=== PATIENT | female | born 1935 | race Caucasian/White ===

== ENCOUNTER 2018-07-31 15:30 | Emergency (ER) | payer MEDICARE ==
[~2018-07-31] VITALS: Ht 154.9 cm; Wt 61.2 kg
[2018-07-31 15:35] VITALS: BP 150/66
[2018-07-31] MEDS ORDERED: DEXILANT60 MG ORAL (15:41)
[2018-07-31] MEDS ORDERED: SINEMET 25-1001 EAC1 ORAL (15:44)
[2018-07-31] MEDS ORDERED: RANITIDINE HCL150 MG ORAL (15:44)
[2018-07-31] MEDS ORDERED: RITALIN20 MG ORAL (15:44)
[2018-07-31] MEDS ORDERED: SYNTHROID112 MCG ORAL (15:44)
[2018-07-31] MEDS ORDERED: SUBOXONE 2 MG-1 EACH SL (15:44)
[2018-07-31] MEDS ORDERED: CYMBALTA60 MG ORAL (15:44)
[2018-07-31] MEDS ORDERED: CEPHALEXIN500 MG ORAL (15:44)
[2018-07-31] MEDS ORDERED: ATORVASTATIN CA10 MG ORAL (15:44)
[2018-07-31] MEDS ORDERED: NAMENDA10 MG ORAL (15:44)
--- NOTE | 2018-07-31 16:02 | Emergency Room Report ---
History of Present Illness General Chief Complaint: Chest Pain Source: Patient Present Illness HPI Mrs. Neri is an 82-year-old female with history of Parkinson's disease, pericarditis and UTI who presents with 2 weeks of generalized weakness and altered mental status. She's had difficulty with energy. Appears to have repetitive speech and hallucinations. She was evaluated by her neurologist today. While at the neurologist office today, she developed sudden onset 7/10 chest pain. Improved with aspirin and nitroglycerin. 2 years ago she had similar chest pain diagnosed with pericarditis. No history of AL. Patient denies any pain at this time. Allergies: Coded Allergies: NITROFURANTOIN (Verified Allergy, Unknown, 07/31/18) Uncoded Allergies: SULFA (Allergy, Unknown, 07/31/18) Patient History Past Medical History: see triage record Past Surgical History: unable to obtain Social History: Denies: smoking, alcohol use, drug use Social History Narrative lives with , both patient and require 24 hour nursing care Now: No Reviewed Nursing Documentation: PMH: Agreed; PSxH: Agreed Nursing Documentation-PMH Past Medical History: No History, Except For Hx Asthma: Yes Hx Cancer: Yes - Breast Review of Systems All Other Systems: limited - ams Physical Exam Vital Signs Date Time Temp Pulse Resp B/P (MAP) Pulse Ox O2 Delivery O2 Flow Rate FiO2 07/31/18 15:33 98.8 68 20 141/84 95 Room Air Sp02 EP Interpretation: reviewed, normal General Appearance: no apparent distress, alert, non-toxic, other - elderly frail Head: normocephalic, atraumatic Eyes: bilateral eye normal inspection ENT: hearing grossly normal, normal pharynx, no angioedema, normal voice Neck: full range of motion, supple/symm/no masses Respiratory: chest non-tender, lungs clear, normal breath sounds, no rhonchi, no respiratory distress, no retraction, speaking full sentences Cardiovascular #1: regular rate, rhythm, no edema, no gallop, no JVD, no murmur , no rub Gastrointestinal: normal bowel sounds, non tender, soft, non-distended, no guarding, no rebound Rectal: deferred Musculoskeletal: back normal, gait/station normal, normal range of motion, non- tender, calf tenderness Neurologic: alert, oriented x3, responsive, motor strength/tone normal, sensory intact, speech normal Psychiatric: judgement/insight normal, memory normal, no suicidal/homicidal ideation, depressed affect Skin: normal color, no rash, warm/dry, well hydrated Medical Decision Making Diagnostic Impression: Primary Impression: Chest pain Additional Impressions: Delirium Generalized weakness ER Course Mrs. Neri presents with 3 weeks of generalized weakness and delirium including confusion and hallucinations. Developed chest pain today without evidence of STEMI, Transferred to [facility] in stable condition for continuity of care and further evaluation. Dr. Castle is the accepting physician. Labs Test 07/31/18 16:10 White Blood Count 6.3 K/UL (4.8-10.8) Red Blood Count 4.43 M/UL (4.20-5.40) Hemoglobin 13.8 G/DL (12.0-16.0) Hematocrit 40.3 % (37.0-47.0) Mean Corpuscular Volume 91 FL (80-99) Mean Corpuscular Hemoglobin 31.2 PG (27.0-31.0) Mean Corpuscular Hemoglobin Concent 34.3 G/DL (32.0-36.0) Red Cell Distribution Width 11.3 % (11.6-14.8) Platelet Count 279 K/UL (150-450) Mean Platelet Volume 5.9 FL (6.5-10.1) Neutrophils (%) (Auto) 73.5 % (45.0-75.0) Lymphocytes (%) (Auto) 15.1 % (20.0-45.0) Monocytes (%) (Auto) 7.7 % (1.0-10.0) Eosinophils (%) (Auto) 0.7 % (0.0-3.0) Basophils (%) (Auto) 3.0 % (0.0-2.0) Sodium Level 135 MMOL/L (136-145) Potassium Level 4.6 MMOL/L (3.5-5.1) Chloride Level 98 MMOL/L (98-107) Carbon Dioxide Level 30 MMOL/L (21-32) Anion Gap 7 mmol/L (5-15) Blood Urea Nitrogen 19 mg/dL (7-18) Creatinine 1.0 MG/DL (0.55-1.30) Estimat Glomerular Filtration Rate mL/min (>60) Glucose Level 128 MG/DL (74-106) Calcium Level 9.5 MG/DL (8.5-10.1) Total Bilirubin 0.4 MG/DL (0.2-1.0) Aspartate Amino Transf (AST/SGOT) 25 U/L (15-37) Alanine Aminotransferase (ALT/SGPT) 6 U/L (12-78) Alkaline Phosphatase 103 U/L (46-116) Creatine Kinase MB 0.7 NG/ML (0.0-3.6) Troponin I 0.000 ng/mL (0.000-0.056) Total Protein 7.7 G/DL (6.4-8.2) Albumin 2.9 G/DL (3.4-5.0) Globulin 4.8 g/dL Albumin/Globulin Ratio 0.6 (1.0-2.7) Lab Results Impression labs within normal limits, normal troponin EKG Diagnostic Results EKG Time: 15:50 Rate: normal Rhythm: NSR Other Impression rate 75 bpm normal axis no ST elevation no overt signs of ischemia, artifact in leads I and III Last Vital Signs Date Time Temp Pulse Resp B/P (MAP) Pulse Ox O2 Delivery O2 Flow Rate FiO2 07/31/18 15:33 98.8 68 20 141/84 95 Room Air Kierra Valdes MD Jul 31, 2018 16:02
[2018-07-31 16:30] LABS: EOSINOPHILS % (AUTO) 0.7 % (0.0-3.0); HEMATOCRIT 40.3 % (37.0-47.0); HEMOGLOBIN 13.8 G/DL (12.0-16.0); LYMPHOCYTES % (AUTO) 15.1 % (20.0-45.0); MEAN CORPUSCULAR VOLUME 91 FL (80-99); MONOCYTES % (AUTO) 7.7 % (1.0-10.0); NEUTROPHILS % (AUTO) 73.5 % (45.0-75.0); PLATELET COUNT 279 K/UL (150-450); RED BLOOD COUNT 4.43 M/UL (4.20-5.40); RED CELL DISTRIBUTION WIDTH 11.3 % (11.6-14.8); WHITE BLOOD COUNT 6.3 K/UL (4.8-10.8)
--- NOTE | 2018-07-31 16:36 | Diagnostic Imaging Report ---
Indication: Dyspnea Comparison: None A single view chest radiograph was obtained. Findings: Cardiomediastinal appearance is within normal limits for age. The lungs are clear. Pulmonary vascularity is appropriate. The diaphragmatic contour is smooth and costophrenic angles are sharp. No pleural effusions are identified. There are surgical clips in the right axilla. The bones are osteopenic. Impression: No acute findings
[2018-07-31] MEDS ORDERED: Levodopa/Carbidopa 25/100 tab ORAL ONE (16:45)
[2018-07-31 16:50] LABS: ANION GAP 7 mmol/L (5-15); BLOOD UREA NITROGEN 19 mg/dL (7-18); CALCIUM 9.5 MG/DL (8.5-10.1); CARBON DIOXIDE 30 MMOL/L (21-32); CHLORIDE 98 MMOL/L (98-107); POTASSIUM 4.6 MMOL/L (3.5-5.1); SODIUM 135 MMOL/L (136-145)
[2018-07-31] MEDS ORDERED: SINEMET 25-2501 EACH ORAL (16:56)
[2018-07-31] MEDS ORDERED: Levodopa/Carbidopa 25/250 tab ORAL ONE (17:00)
[2018-07-31 17:04] LABS: ALANINE AMINOTRANSFERASE 6 U/L (12-78); ALBUMIN 2.9 G/DL (3.4-5.0); ALBUMIN/GLOBULIN RATIO 0.6 (1.0-2.7); ALKALINE PHOSPHATASE 103 U/L (46-116); ASPARTATE AMINO TRANSFERASE 25 U/L (15-37); BILIRUBIN,TOTAL 0.4 MG/DL (0.2-1.0); CKMB 0.7 NG/ML (0.0-3.6)
[2018-07-31 20:50] VITALS: BP 120/56
[2018-07-31 21:54] LABS: APPEARANCE,URINE CLEAR; BILIRUBIN, URINE NEGATIVE (NEGATIVE); GLUCOSE, URINE (UA) NEGATIVE (NEGATIVE); KETONES,URINE 2+ (NEGATIVE); LEUKOCYTE ESTERASE ,URINE 3+ (NEGATIVE); NITRITE,URINE NEGATIVE (NEGATIVE); PH,URINE 5 (4.5-8.0); PROTEIN,URINE 2+ (NEGATIVE); UROBILINOGEN,URINE 1 MG/DL (0.0-1.0)
[2018-07-31 21:56] LABS: COLOR,URINE YELLOW
[2018-07-31 23:05] VITALS: BP 116/60
[2018-07-31 23:18] VITALS: BP 116/60
== END 2018-07-31 23:18 | disposition short-term general hospital (02) ==
LOC: EDBD 15:30 → EMR 17:00 → EDBEDREQ 17:06 → EMR 23:18
DX: R07.9 Chest pain, unspecified (principal); R41.0 Disorientation, unspecified; R53.1 Weakness; R44.3 Hallucinations, unspecified; G20 Parkinson's disease; J45.909 Unspecified asthma, uncomplicated; Z87.440 Personal history of urinary (tract) infections; Z88.2 Allergy status to sulfonamides; Z88.8 Allergy status to other drugs, medicaments and biological substances; Z85.3 Personal history of malignant neoplasm of breast
CPT/HCPCS: 36415; 71045; 80053; 81003; 82553; 84484; 85025; 87086; 93005; 99284